=== PATIENT | female | born 1970 | race Caucasian/White ===

== ENCOUNTER 2017-04-17 17:46 | Emergency (ER) | payer MEDICAID, SELFPAY ==
[~2017-04-17] VITALS: Ht 172.7 cm; Wt 72.7 kg
[~2017-04-17 17:46] MED LIST: FLUO40CA7 PO; FLUV50 PO; TRAZ300T2 PO
[2017-04-17] MEDS ORDERED: MIDO10TA PO (18:13)
[2017-04-17] MEDS ORDERED: BUPR150T3 PO (18:20)
[2017-04-17] MEDS ORDERED: PANT20TA PO (18:20)
[2017-04-17] MEDS ORDERED: ONDA4SOL2 PO (18:20)
[2017-04-17] MEDS ORDERED: HYDR-309 PO (18:20)
[2017-04-17] MEDS ORDERED: FAMO-136 PO (18:20)
[2017-04-17] MEDS ORDERED: ASPI81TA39 PO (18:20)
[2017-04-17] MEDS ORDERED: SODIUM CHLORIDE 0.9% 1,000 ML IV ONE (18:30)
[2017-04-17] MEDS ORDERED: METOCLOPRAMIDE HCL 5 MG/ML 2 ML VIAL IVP ONE (18:30)
[2017-04-17] MEDS ORDERED: MORPHINE SULFATE 4 MG/ML SYRINGE IVP ONE (18:30)
[2017-04-17] MEDS ORDERED: ONDA4 PO (18:40)
[2017-04-17] MEDS ORDERED: PANT40TA25 PO (18:40)
[2017-04-17 20:50] VITALS: BP 119/75
== END 2017-04-17 21:08 | disposition home or self-care (01) ==
LOC: EMS 17:50
DX: G43.909 Migraine, unspecified, not intractable, without status migrainosus (principal); I10 Essential (primary) hypertension; M10.9 Gout, unspecified
CPT/HCPCS: 70450; 96361; 96374; 96375; 99284; J2270; J2765; J7030